=== PATIENT | female | born 1940 | race Hispanic/Latino ===

== ENCOUNTER 2017-10-07 16:52 | Emergency (ER) | payer SELFPAY ==
[~2017-10-07] VITALS: Ht 149.9 cm; Wt 50.8 kg
[2017-10-07] MEDS ORDERED: KLONOPIN0.5 M1 PO ×2 (19:40→19:44)
[2017-10-07 20:12] VITALS: BP 148/72
== END 2017-10-07 20:13 | disposition home or self-care (01) ==
LOC: EME 16:52
DX: F41.9 Anxiety disorder, unspecified (principal); F32.9 Major depressive disorder, single episode, unspecified; Z76.0 Encounter for issue of repeat prescription; I10 Essential (primary) hypertension
CPT/HCPCS: 99281; 99283